=== PATIENT | male | born 1965 | race Two or more races ===

== ENCOUNTER 2018-07-07 09:57 | Emergency (ER) | payer OTHER ==
[~2018-07-07] VITALS: Ht 165.1 cm; Wt 74.8 kg
[2018-07-07] MEDS ORDERED: OLANZAPINE 5 MG TABLET PO ONE (10:30)
[2018-07-07] MEDS ORDERED: OLANZAPINE 5 MG TABLET ONE (10:46)
[2018-07-07 10:54] VITALS: BP 141/81
--- NOTE | 2018-07-07 10:55 | NUR ---
Social service consult requested by DIXON Dennis for homelessness and psychiatric clinic referrals. Pt. is a 53 year old male who came to ED complaining of hearing voices. YEHUDA met with pt. bedside. Pt. is alert and oriented x 4. Pt. appeared clean and well groomed. Pt. is currently living in his car. Pt. states he is from [place] and moved out to [facility] seven days. Pt. has been living in his car for the past seven days. Pt. is not and has no children. Pt's family is in [place]. SW inquired with pt. as to why did he move to [facility] and pt. replied, " to relax." Pt. has a monthly income of $1000. Pt. has a diagnosis of Schizophrenia. Pt. states he is having auditory hallucinations. When YEHUDA asked pt. as to what are the voices telling him, pt. couldn't elaborate and said, " just saying things." Pt. has a psychiatrist in [facility] that he sees every 6 weeks. Pt. denies any visual hallucinations and suicidal/ homicidal ideations at this time. Pt. would like referrals to mental health clinics. YEHUDA provided pt. with the following mental health clinics: [facility] Homeless Program [id number] [place] [address] Services include comprehensive field-based mental health services, with case management and medication support services. Laundry, shower and locker facilities are available. Homeless mentally ill people may be seen at [facility] on a walk-in basis. [facility] [place] [address] [facility], [address]nd [place] [address] Main Number: [facility] ([facility]): Contact [facility] [address] [place] [address] HOURS: Mon-Fri 8am--7pm Saturdays 9am--5:30pm Closed on Sundays Clinic stated that walk-ins are welcomed, but they will be a long wait. No appointments. Services: mental health services, medications, community health worker for resource linkage. [place] [address] Operation Hours: FRI - FRI 8:00 a.m. - 5:00 p.m. Walk In Hours: FRI - FRI 8:00 a.m. - 5:00 p.m. Services by Age: Adults and Older Adults Mental Health Services: [facility]able Clinical Services ([facility]) Medication Support Mental Health Services Peer Support NOTE: [facility] 25/11 helpline: Since pt. is living in his car, YEHUDA also explained and gave pt. the [facility] Skilled Nursing Program list [id number] and informed pt. of the rock pick[place] location and times for overnight mcc. YEHUDA also gave pt. the [facility] Homeless Directory that has list of referrals for showers, hot meals, Transitional housing, employment services, homeless shelters etc. Homeless Patient Waiver Form was signed by the pt. and placed in pt's chart. No other social service needs are requested at this time.
--- NOTE | 2018-07-07 10:55 | NUR ---
patient discharge in stable condition. patient was not suicidal per MD. Pilar BLACKMAN spoke to patient and homeless safe discharge provided. Prescription given and patient able to understand instructions. lft in stable conditon, denies any pain or any discomfort, nor chest pain. Vital signs WNL.
== END 2018-07-07 10:55 | disposition home or self-care (01) ==
LOC: ER 10:08
DX: R44.0 Auditory hallucinations (principal); Z76.0 Encounter for issue of repeat prescription; Z59.0 Homelessness
CPT/HCPCS: 99283; A4606